=== PATIENT | male | born 1965 | race Caucasian/White ===

== ENCOUNTER 2018-09-02 08:11 | Emergency (ER) | payer MEDICAID ==
[~2018-09-02] VITALS: Ht 175.3 cm; Wt 69.0 kg
[2018-09-02] MEDS ORDERED: TETanus/Pertussis (Acell)/Diphther VAC/PF (Tdap-Adult) 0.5ml syringe IM ONE (08:20)
[2018-09-02] MEDS ORDERED: LIDOcaine 1% w/epiNEPHrine 1:200,000 30ml vial IM ONE (08:20)
--- NOTE | 2018-09-02 08:53 | NUR ---
LAC NOTED TO RIGHT FOREHEAD AREA. SMALL AMOUNT BLEEDONG NOTED. PROVIDER AT THE BEDSIDE, PREPARING TO REPAIR LAC. WOUND IRRIGATED WITH SALINE PER SPIRAL GEAR GENERATOR.
[2018-09-02 10:14] VITALS: BP 112/63
== END 2018-09-02 10:16 | disposition home or self-care (01) ==
LOC: ER 08:12
DX: S01.01XA Laceration without foreign body of scalp, initial encounter (principal); S60.512A Abrasion of left hand, initial encounter; S60.511A Abrasion of right hand, initial encounter; X58.XXXA Exposure to other specified factors, initial encounter; Y93.89 Activity, other specified; Y92.89 Other specified places as the place of occurrence of the external cause; Y99.8 Other external cause status
CPT/HCPCS: 12002; 70450; 90471; 90715; 99284; J3490

== ENCOUNTER 2019-03-05 17:40 | Emergency (ER) | payer MEDICAID ==
[~2019-03-05] VITALS: Ht 165.1 cm; Wt 68.0 kg
[2019-03-05] MEDS ORDERED: normal saline 1000ML IV soln IVB ONE (17:45)
[2019-03-05 18:40] LABS: BASOPHILS % (AUTO) 0.3 % (0-1); EOSINOPHILS % (AUTO) 0.4 % (0-6); HEMATOCRIT 43.5 % (42.0-52.0); HEMOGLOBIN 14.9 g/dl (14.0-17.9); LYMPHOCYTES # (AUTO) 2.1 X10'3 (1.1-4.8); LYMPHOCYTES % (AUTO) 19.1 % (21-51); MEAN CORPUSCULAR HEMOGLOBIN 32.3 PG (27.0-31.0); MEAN CORPUSCULAR HGB CONC 34.3 g/dL (33.0-36.5); MEAN CORPUSCULAR VOLUME 94.4 FL (78-98); MEAN PLATELET VOLUME 7.4 FL (7.4-10.4); MONOCYTES # (AUTO) 0.6 X10'3 (0-0.9); MONOCYTES % (AUTO) 5.5 % (2-12); NEUTROPHILS % (AUTO) 74.7 % (42-75); PLATELET COUNT 278 X10'3 (140-440); RED BLOOD COUNT 4.61 X10'6 (4.70-6.10); RED CELL DISTRIBUTION WIDTH 12.9 % (11.5-14.5); WHITE BLOOD COUNT 10.8 X10'3 (4.5-11.0)
[2019-03-05 18:53] LABS: ALANINE AMINOTRANSFERASE 33 U/L (12-78); ALBUMIN 3.3 G/DL (3.4-5.0); ALBUMIN/GLOBULIN RATIO 0.7 (1.1-1.5); ALKALINE PHOSPHATASE 139 IU/L (46-116); ANION GAP 12 (8-16); ASPARTATE AMINO TRANSFERASE 25 U/L (10-37); BILIRUBIN,TOTAL 0.2 MG/DL (0.1-1.0); BLOOD UREA NITROGEN 16 MG/DL (7-18); BUN/CREATININE RATIO 24.2 (5.4-32.0); CALCIUM 8.5 MG/DL (8.5-10.1); CHLORIDE 106 MMOL/L (99-107); CREATININE 0.66 MG/DL (0.60-1.10); GLUCOSE 117 MG/DL (70-104); POTASSIUM 3.8 MMOL/L (3.5-5.1); SODIUM 141 MMOL/L (135-145); TOTAL CARBON DIOXIDE 23.5 MMOL/L (24-32); TOTAL PROTEIN 8.2 G/DL (6.4-8.2); eGFR > 90 ML/MIN
[2019-03-05 19:00] LABS: ETHANOL 0.332 GM/DL (0.0-0.010)
[2019-03-05] MEDS ORDERED: thiamine 100mg/ml 2ml inj. IV ONE (19:15)
[2019-03-05] MEDS ORDERED: normal saline 1000ML IV soln IV ONE (19:15)
[2019-03-05] MEDS ORDERED: folic acid 1mg/0.2ml inj IV ONE (19:15)
--- NOTE | 2019-03-05 21:28 | NUR ---
Pt's urine specimen obtained and sent to the lab for processing. Pt is on the gurney in a side lying position of comfort. Pt given warm blankets. Vitals stable.
[2019-03-05 21:41] LABS: CLARITY,URINE CLEAR (Clear); COLOR,URINE YELLOW (Yellow); GLUCOSE, URINE NEGATIVE (Neg); KETONES,URINE NEGATIVE (Neg); LEUKOCYTE ESTERASE ,URINE NEGATIVE (Neg); NITRITES, URINE NEGATIVE (Neg); OCCULT BLOOD,URINE NEGATIVE (Neg); PH,URINE 5.5 (4.8-8.0); PROTEIN,URINE NEGATIVE (Neg); UROBILINOGEN,URINE 0.2 E.U/dL (0.2-1.0)
[2019-03-05 21:43] LABS: UA COLLECTION TYPE CLN CATCH MIDSTREAM
[2019-03-05 21:44] LABS: URINE AMPHETAMINE SCREEN POSITIVE (Neg); URINE BARBITUATE SCREEN NEGATIVE (Neg); URINE BENZODIAZEPINES SCREEN NEGATIVE (Neg); URINE CANNABINOID SCREEN NEGATIVE (Neg); URINE COCAINE SCREEN NEGATIVE (Neg); URINE METHADONE SCREEN NEGATIVE (Neg); URINE OPIATE SCREEN NEGATIVE (Neg); URINE PHENCYCLIDINE SCREEN NEGATIVE (Neg)
--- NOTE | 2019-03-05 22:30 | NUR ---
pt dc ready, he will be provided a hospital pay taxi to the [place]. When Pt getting dressed for DC reporting pain to his left arm and stating he cannot move it. KATE Tineo, updated and will order xray. Pt had only 5 minutes prior told me that he had no pain. Standing steady at bedside using urinal. awaiting xray
[2019-03-05 23:46] VITALS: BP 119/87
--- NOTE | 2019-03-06 | NUR ---
Pt given food and drink and weather appropriate clothing prior to discharge. Arm sling applied to the left upper extremity as ordered.
--- NOTE | 2019-03-06 | NUR ---
Abrasions on the right hand cleaned with saline and gauze and bandaids applied. Pt instructed about wound care and observe signs of infection. Pt has stable vitals and normal temperature. Pt reports pain is acceptable level. Yellow cab is in route to the hospital to lemon picker the patient to transport him to his reported place of residence at "[address], [place] Pt reminded his bicycle is in the ambulance bay and the class c truck driver reports he will be able to transport the bike in the trunk. Pt ambulatory with steady gait upon discharge to home.
== END 2019-03-06 | disposition home or self-care (01) ==
LOC: ER 17:40
DX: S00.81XA Abrasion of other part of head, initial encounter (principal); S00.212A Abrasion of left eyelid and periocular area, initial encounter; S60.512A Abrasion of left hand, initial encounter; F10.929 Alcohol use, unspecified with intoxication, unspecified; M25.512 Pain in left shoulder; R79.1 Abnormal coagulation profile; Z88.0 Allergy status to penicillin; V19.9XXA Pedal cyclist (driver) (passenger) injured in unspecified traffic accident, initial encounter; Y93.89 Activity, other specified; Y92.488 Other paved roadways as the place of occurrence of the external cause; Y99.8 Other external cause status
CPT/HCPCS: 36415; 70450; 71045; 72125; 73030; 80053; 80305; 80320; 81003; 82948; 85025; 85610; 93005; 96374; 96375; 99284; J3411; J3490; J7030

== ENCOUNTER 2020-05-05 01:21 | Emergency (ER) | payer MEDICAID ==
[~2020-05-05] VITALS: Ht 172.7 cm; Wt 68.0 kg
[2020-05-05] MEDS ORDERED: sulfamethoxazole/trimethoprim DS (800/160mg) tablet PO ONE (01:40)
[2020-05-05] MEDS ORDERED: SULF1TAB48 PO (01:51)
[2020-05-05 01:52] LABS: CLARITY,URINE CLEAR (Clear); COLOR,URINE YELLOW (Yellow); GLUCOSE, URINE NEGATIVE (Neg); KETONES,URINE NEGATIVE (Neg); LEUKOCYTE ESTERASE ,URINE NEGATIVE (Neg); NITRITES, URINE NEGATIVE (Neg); OCCULT BLOOD,URINE NEGATIVE (Neg); PROTEIN,URINE 30 mg/dl (Neg); UROBILINOGEN,URINE 0.2 E.U/dL (0.2-1.0)
[2020-05-05 01:57] LABS: UA COLLECTION TYPE CLN CATCH MIDSTREAM
[2020-05-05 01:59] VITALS: BP 106/66
[2020-05-05 01:59] LABS: URINE AMPHETAMINE SCREEN POSITIVE (Neg); URINE BARBITUATE SCREEN NEGATIVE (Neg); URINE BENZODIAZEPINES SCREEN NEGATIVE (Neg); URINE CANNABINOID SCREEN NEGATIVE (Neg); URINE COCAINE SCREEN NEGATIVE (Neg); URINE METHADONE SCREEN NEGATIVE (Neg); URINE OPIATE SCREEN NEGATIVE (Neg); URINE PHENCYCLIDINE SCREEN NEGATIVE (Neg)
[2020-05-05 02:22] LABS: SQUAMOUS EPITHELIAL CELL,UR FEW /LPF (FEW)
[2020-05-05 02:31] LABS: BACTERIA,URINE FEW /HPF (Neg); RBC,URINE NONE SEEN /HPF (0-2); WBC,URINE 0-4 /HPF (0-4)
== END 2020-05-05 02:34 | disposition home or self-care (01) ==
LOC: ER 01:21
DX: T40.411A Poisoning by fentanyl or fentanyl analogs, accidental (unintentional), initial encounter (principal); F15.90 Other stimulant use, unspecified, uncomplicated; L03.311 Cellulitis of abdominal wall; F17.200 Nicotine dependence, unspecified, uncomplicated; Z72.89 Other problems related to lifestyle; Z88.0 Allergy status to penicillin; Z79.899 Other long term (current) drug therapy; Y92.89 Other specified places as the place of occurrence of the external cause
CPT/HCPCS: 80305; 81001; 99283

== ENCOUNTER 2020-10-02 17:30 | Emergency (ER) | payer MEDICAID ==
[~2020-10-02] VITALS: Ht 170.2 cm; Wt 65.8 kg
[2020-10-02] MEDS ORDERED: SULF1TAB49 PO (19:47)
[2020-10-02] MEDS ORDERED: CEPH250T PO (19:47)
[2020-10-02 20:07] VITALS: BP 130/78
== END 2020-10-02 20:08 | disposition home or self-care (01) ==
LOC: ER 17:30
DX: L02.414 Cutaneous abscess of left upper limb (principal); F15.90 Other stimulant use, unspecified, uncomplicated; F11.90 Opioid use, unspecified, uncomplicated; F19.90 Other psychoactive substance use, unspecified, uncomplicated; Z72.89 Other problems related to lifestyle; Z88.0 Allergy status to penicillin; Z79.2 Long term (current) use of antibiotics
CPT/HCPCS: 99283

== ENCOUNTER 2020-10-30 13:35 | Emergency (ER) | payer MEDICAID ==
[~2020-10-30] VITALS: Ht 172.7 cm; Wt 68.2 kg
--- NOTE | 2020-10-30 14:00 | NUR ---
Md Griffin notified pt's R arm pain, acs protocol per prior provider Valentin and SUSANA 1L initiated
[2020-10-30 14:26] LABS: BASOPHILS # (AUTO) 0.1 X10'3 (0-0.2); BASOPHILS % (AUTO) 0.7 % (0-1); EOSINOPHILS % (AUTO) 0.3 % (0-6); HEMATOCRIT 40.7 % (42.0-52.0); HEMOGLOBIN 13.7 g/dl (14.0-17.9); LYMPHOCYTES # (AUTO) 1.4 X10'3 (1.1-4.8); LYMPHOCYTES % (AUTO) 11.3 % (21-51); MEAN CORPUSCULAR HEMOGLOBIN 31.1 PG (27.0-31.0); MEAN CORPUSCULAR HGB CONC 33.6 g/dL (33.0-36.5); MEAN CORPUSCULAR VOLUME 92.5 FL (78-98); MEAN PLATELET VOLUME 7.9 FL (7.4-10.4); NEUTROPHILS # (AUTO) 9.6 X10'3 (1.8-7.7); NEUTROPHILS % (AUTO) 79.7 % (42-75); PLATELET COUNT 241 X10'3 (140-440); RED BLOOD COUNT 4.39 X10'6 (4.70-6.10); RED CELL DISTRIBUTION WIDTH 13.8 % (11.5-14.5); WHITE BLOOD COUNT 12.1 X10'3 (4.5-11.0)
[2020-10-30 14:39] LABS: ALANINE AMINOTRANSFERASE 33 U/L (12-78); ALBUMIN 3.2 G/DL (3.4-5.0); ALBUMIN/GLOBULIN RATIO 0.9 (1.1-1.5); ALKALINE PHOSPHATASE 119 IU/L (46-116); ANION GAP 10 (8-16); ASPARTATE AMINO TRANSFERASE 25 U/L (10-37); BILIRUBIN,TOTAL 0.6 MG/DL (0.1-1.0); BLOOD UREA NITROGEN 11 MG/DL (7-18); CALCIUM 7.8 MG/DL (8.5-10.1); CHLORIDE 104 MMOL/L (99-107); CREATININE 0.58 MG/DL (0.60-1.10); GLUCOSE 105 MG/DL (70-104); POTASSIUM 3.3 MMOL/L (3.5-5.1); SODIUM 139 MMOL/L (135-145); TOTAL CARBON DIOXIDE 25.2 MMOL/L (24-32); TOTAL PROTEIN 6.9 G/DL (6.4-8.2); eGFR > 90 ML/MIN
[2020-10-30] MEDS ORDERED: normal saline 1000ml 1,000 ML IV ONE (14:50)
[2020-10-30] MEDS ORDERED: gentamicin inj 400 MG in normal saline 100ml IV soln 100 ML IV STA (15:07)
[2020-10-30] MEDS ORDERED: DOXYCYCLINE 100MG CAPSULE PO STA (15:07)
[2020-10-30] MEDS ORDERED: ketorolac trometh. 30mg/ml inj. IV ONE (15:10)
[2020-10-30] MEDS ORDERED: HYDROcodone/acetaminophen 10/325mg tab PO ONE (15:15)
--- NOTE | 2020-10-30 15:51 | NUR ---
relieving RN for break, medicated pt per MD order, pt is resting quietly on gurney, resp even and unlabored
[2020-10-30] MEDS ORDERED: CEPH-585 PO (16:32)
[2020-10-30] MEDS ORDERED: SULF1TAB45 PO (16:32)
[2020-10-30 17:14] VITALS: BP 118/58
== END 2020-10-30 17:16 | disposition home or self-care (01) ==
LOC: ER 13:35
DX: L03.114 Cellulitis of left upper limb (principal); F15.90 Other stimulant use, unspecified, uncomplicated; F11.90 Opioid use, unspecified, uncomplicated; Z72.89 Other problems related to lifestyle; Z86.19 Personal history of other infectious and parasitic diseases; Z88.0 Allergy status to penicillin; Z79.899 Other long term (current) drug therapy
CPT/HCPCS: 36415; 71045; 73090; 80053; 83880; 84145; 84484; 85025; 93005; 96361; 96365; 96375; 99285; J1580; J1885; J7030; 96374

== ENCOUNTER 2021-03-01 13:21 | Emergency (ER) | payer MEDICAID ==
[~2021-03-01] VITALS: Ht 172.7 cm; Wt 77.3 kg
[~2021-03-01 13:21] MED LIST: CEPH-585 PO
[2021-03-01 13:37] VITALS: BP 103/70
== END 2021-03-01 14:02 ==
LOC: ER 13:21
DX: F10.129 Alcohol abuse with intoxication, unspecified (principal); F15.10 Other stimulant abuse, uncomplicated; F11.10 Opioid abuse, uncomplicated; Z02.89 Encounter for other administrative examinations; Y90.9 Presence of alcohol in blood, level not specified; Z88.0 Allergy status to penicillin
CPT/HCPCS: 99283

== ENCOUNTER 2021-12-28 00:54 | Emergency (ER) | payer MEDICAID ==
[~2021-12-28] VITALS: Ht 175.3 cm; Wt 86.4 kg
[2021-12-28] MEDS ORDERED: normal saline 1000ML IV soln IVB ONE (01:20)
[2021-12-28 03:19] LABS: BASOPHILS % (AUTO) 0.2 % (0-1); EOSINOPHILS % (AUTO) 0.3 % (0-6); HEMOGLOBIN 15.1 g/dl (14.0-17.9); LYMPHOCYTES # (AUTO) 1.1 X10'3 (1.1-4.8); MEAN CORPUSCULAR HEMOGLOBIN 31.8 PG (27.0-31.0); MEAN CORPUSCULAR HGB CONC 34.3 g/dL (33.0-36.5); MEAN CORPUSCULAR VOLUME 92.5 FL (78-98); MEAN PLATELET VOLUME 7.8 FL (7.4-10.4); MONOCYTES # (AUTO) 0.5 X10'3 (0-0.9); MONOCYTES % (AUTO) 4.2 % (2-12); NEUTROPHILS # (AUTO) 10.1 X10'3 (1.8-7.7); NEUTROPHILS % (AUTO) 86.3 % (42-75); PLATELET COUNT 323 X10'3 (140-440); RED BLOOD COUNT 4.75 X10'6 (4.70-6.10); RED CELL DISTRIBUTION WIDTH 13.3 % (11.5-14.5); WHITE BLOOD COUNT 11.7 X10'3 (4.5-11.0)
[2021-12-28 03:37] LABS: ALANINE AMINOTRANSFERASE 34 U/L (12-78); ALBUMIN 3.6 G/DL (3.4-5.0); ALBUMIN/GLOBULIN RATIO 0.7 (1.1-1.5); ALKALINE PHOSPHATASE 137 IU/L (46-116); ANION GAP 9 (8-16); ASPARTATE AMINO TRANSFERASE 28 U/L (10-37); BILIRUBIN,TOTAL 0.2 MG/DL (0.1-1.0); BLOOD UREA NITROGEN 18 MG/DL (7-18); BUN/CREATININE RATIO 22.2 (5.4-32.0); CALCIUM 8.1 MG/DL (8.5-10.1); CHLORIDE 106 MMOL/L (99-107); CREATININE 0.81 MG/DL (0.60-1.10); GLUCOSE 118 MG/DL (70-104); POTASSIUM 3.8 MMOL/L (3.5-5.1); SODIUM 143 MMOL/L (135-145); TOTAL CARBON DIOXIDE 28.5 MMOL/L (24-32); TOTAL PROTEIN 8.6 G/DL (6.4-8.2); eGFR > 90 ML/MIN
[2021-12-28 03:43] LABS: ETHANOL < 0.010 GM/DL (0.0-0.010)
[2021-12-28 04:07] LABS: CLARITY,URINE CLEAR (Clear); COLOR,URINE YELLOW (Yellow); GLUCOSE, URINE NEGATIVE (Neg); KETONES,URINE NEGATIVE (Neg); LEUKOCYTE ESTERASE ,URINE NEGATIVE (Neg); NITRITES, URINE NEGATIVE (Neg); OCCULT BLOOD,URINE NEGATIVE (Neg); PH,URINE 5.5 (4.8-8.0); PROTEIN,URINE 30 mg/dl (Neg); UROBILINOGEN,URINE 0.2 E.U/dL (0.2-1.0)
[2021-12-28 04:09] LABS: UA COLLECTION TYPE NON-SPECIFIED
[2021-12-28 04:14] LABS: BACTERIA,URINE FEW /HPF (Neg); RBC,URINE 0-2 /HPF (0-2); SQUAMOUS EPITHELIAL CELL,UR FEW /LPF (FEW); WBC,URINE NONE SEEN /HPF (0-4)
[2021-12-28 04:19] LABS: URINE AMPHETAMINE SCREEN POSITIVE (Neg); URINE BARBITUATE SCREEN NEGATIVE (Neg); URINE BENZODIAZEPINES SCREEN NEGATIVE (Neg); URINE CANNABINOID SCREEN NEGATIVE (Neg); URINE COCAINE SCREEN NEGATIVE (Neg); URINE METHADONE SCREEN NEGATIVE (Neg); URINE OPIATE SCREEN NEGATIVE (Neg); URINE PHENCYCLIDINE SCREEN NEGATIVE (Neg)
[2021-12-28 06:11] VITALS: BP 144/83
== END 2021-12-28 06:17 | disposition home or self-care (01) ==
LOC: ER 00:54
DX: T40.2X1A Poisoning by other opioids, accidental (unintentional), initial encounter (principal); R41.82 Altered mental status, unspecified; Z87.19 Personal history of other diseases of the digestive system; Z88.0 Allergy status to penicillin; Y92.89 Other specified places as the place of occurrence of the external cause
CPT/HCPCS: 36415; 70450; 71045; 80053; 80305; 80320; 81001; 84484; 85025; 96360; 99285; J7030

== ENCOUNTER 2022-07-20 16:24 | Emergency (ER) | payer MEDICAID ==
[~2022-07-20] VITALS: Ht 172.7 cm; Wt 63.6 kg
[2022-07-20] MEDS ORDERED: SULF1TAB49 PO (17:41)
[2022-07-20] MEDS ORDERED: NALO4SPR BOTHNARES (17:41)
[2022-07-20 18:05] VITALS: BP 112/71
--- NOTE | 2022-07-21 10:38 | NUR ---
Received order for consult. Patient discharged. Left message for patient to call me back.
== END 2022-07-20 18:18 | disposition home or self-care (01) ==
LOC: ER 16:25
DX: T40.411A Poisoning by fentanyl or fentanyl analogs, accidental (unintentional), initial encounter (principal); F15.10 Other stimulant abuse, uncomplicated; F11.90 Opioid use, unspecified, uncomplicated; Z88.0 Allergy status to penicillin; Z86.19 Personal history of other infectious and parasitic diseases; Y92.89 Other specified places as the place of occurrence of the external cause
CPT/HCPCS: 99284

== ENCOUNTER 2023-09-24 21:28 | Inpatient (IN) | payer MEDICAID ==
[~2023-09-24] VITALS: Ht 175.3 cm; Wt 67.0 kg
[~2023-09-24 21:28] MED LIST changes: -CEPH-585 PO; +NALO4SPR BOTHNARES
[2023-09-24 23:47] LABS: BASOPHILS % (AUTO) 0.5 % (0-1); EOSINOPHILS # (AUTO) 0.1 X10'3 (0-0.9); EOSINOPHILS % (AUTO) 1.3 % (0-6); HEMATOCRIT 42.9 % (42.0-52.0); HEMOGLOBIN 14.8 g/dl (14.0-17.9); LYMPHOCYTES # (AUTO) 2.8 X10'3 (1.1-4.8); LYMPHOCYTES % (AUTO) 36.5 % (21-51); MEAN CORPUSCULAR HEMOGLOBIN 31.7 PG (27.0-31.0); MEAN CORPUSCULAR HGB CONC 34.5 g/dL (33.0-36.5); MEAN CORPUSCULAR VOLUME 91.8 FL (78-98); MEAN PLATELET VOLUME 8.3 FL (7.4-10.4); MONOCYTES # (AUTO) 0.6 X10'3 (0-0.9); MONOCYTES % (AUTO) 7.7 % (2-12); NEUTROPHILS # (AUTO) 4.2 X10'3 (1.8-7.7); PLATELET COUNT 274 X10'3 (140-440); RED BLOOD COUNT 4.67 X10'6 (4.70-6.10); RED CELL DISTRIBUTION WIDTH 13.2 % (11.5-14.5); WHITE BLOOD COUNT 7.7 X10'3 (4.5-11.0)
[2023-09-24] MEDS ORDERED: BUPR150T8 PO (23:59)
[2023-09-24] MEDS ORDERED: DONE-53 PO (23:59)
[2023-09-25 00:03] LABS: APTT 27 SECONDS (22-32); PROTHROMBIN TIME 10.3 SECONDS (9.0-12.0)
[2023-09-25 00:18] LABS: ALANINE AMINOTRANSFERASE 44 U/L (12-78); ALBUMIN 3.7 G/DL (3.4-5.0); ALBUMIN/GLOBULIN RATIO 0.8 (1.1-1.5); ALKALINE PHOSPHATASE 97 IU/L (46-116); ANION GAP 13 (8-16); ASPARTATE AMINO TRANSFERASE 29 U/L (10-37); BILIRUBIN,TOTAL 0.2 MG/DL (0.1-1.0); BLOOD UREA NITROGEN 12 MG/DL (7-18); CALCIUM 8.7 MG/DL (8.5-10.1); CHLORIDE 105 MMOL/L (99-107); CREATININE 0.63 MG/DL (0.60-1.10); GLUCOSE 106 MG/DL (70-104); POTASSIUM 3.5 MMOL/L (3.5-5.1); SODIUM 141 MMOL/L (135-145); TOTAL CARBON DIOXIDE 23.1 MMOL/L (24-32); TOTAL PROTEIN 8.1 G/DL (6.4-8.2); eCRCL 120 ML/MIN; eGFR > 90 ML/MIN
[2023-09-25] MEDS: normal saline 1000ML IV soln IVB ONE (01:28)
[2023-09-25] MEDS: TETanus/Pertussis (Acell)/Diphther VAC/PF (Tdap-Adult) 0.5ml syringe IMVAC ONE (01:30)
[2023-09-25] MEDS ORDERED: ondansetron 4mg rapidly disintigrating tab PO PRN (01:35)
[2023-09-25] MEDS ORDERED: LORazepam 1 MG tablet PO PRN (01:35)
[2023-09-25] MEDS ORDERED: haloperidol lactate 5mg/ml inj IM PRN (01:35)
[2023-09-25] MEDS ORDERED: acetaminophen 325mg tablet PO PRN (01:35)
[2023-09-25] MEDS ORDERED: potassium Cl 40MEQ/1/2NS 520ml 520 ML IV PRN (01:35)
[2023-09-25] MEDS ORDERED: potassium Cl 20 mEq SR tablet PO PRN ×2 (01:35)
[2023-09-25] MEDS ORDERED: haloperidol 5mg tablet PO PRN (01:35)
[2023-09-25] MEDS ORDERED: magnesium Cl slow-release 64mg tablet PO PRN (01:35)
[2023-09-25] MEDS ORDERED: LORazepam 2 mg/ml vial IV PRN (01:35)
[2023-09-25] MEDS ORDERED: ondansetron/PF 4mg/2ml inj IV PRN (01:35)
[2023-09-25] MEDS ORDERED: dextrose 50%-water 50ml dispensing syringe IV PRN (01:35)
[2023-09-25] MEDS ORDERED: magnesium 4gm in 100ml NS 100 ML IV PRN (01:35)
[2023-09-25] MEDS ORDERED: HYDROcodone/acetaminophen 5mg/325mg tablet PO PRN (01:35)
[2023-09-25] MEDS ORDERED: morphine 2 MG/ML inj. syringe IV PRN ×2 (01:35)
[2023-09-25] MEDS ORDERED: magnesium hydroxide 30ml (MOM) UD suspension PO PRN (01:35)
[2023-09-25] MEDS ORDERED: mag hydrox/Alum hydrox/simeth 30ml oral suspension PO PRN (01:35)
[2023-09-25] MEDS ORDERED: magnesium 2GM in 50ml NS 50 ML IV PRN (01:35)
[2023-09-25] MEDS: PERFLUTREN PROTEIN-A MICROSPHR (Optison) 0.22 MG/ML 3ML VIAL IV ONE (02:29)
[2023-09-25 03:05] LABS: ETHANOL 230 MG/DL (<10); MAGNESIUM 2.2 MG/DL (1.5-2.4)
[2023-09-25 03:23] LABS: BILIRUBIN,URINE NEGATIVE (Neg); CLARITY,URINE CLEAR (Clear); COLOR,URINE STRAW (Yellow); GLUCOSE, URINE NEGATIVE (Neg); KETONES,URINE NEGATIVE (Neg); LEUKOCYTE ESTERASE ,URINE NEGATIVE (Neg); NITRITES, URINE NEGATIVE (Neg); OCCULT BLOOD,URINE NEGATIVE (Neg); PH,URINE 5.5 (4.8-8.0); PROTEIN,URINE NEGATIVE (Neg); UROBILINOGEN,URINE 0.2 E.U/dL (0.2-1.0)
[2023-09-25 03:25] LABS: UA COLLECTION TYPE CLN CATCH MIDSTREAM
[2023-09-25 04:01] LABS: URINE AMPHETAMINE SCREEN NEGATIVE (Neg); URINE BARBITUATE SCREEN NEGATIVE (Neg); URINE BENZODIAZEPINES SCREEN NEGATIVE (Neg); URINE CANNABINOID SCREEN NEGATIVE (Neg); URINE COCAINE SCREEN NEGATIVE (Neg); URINE METHADONE SCREEN NEGATIVE (Neg); URINE OPIATE SCREEN NEGATIVE (Neg); URINE PHENCYCLIDINE SCREEN NEGATIVE (Neg)
[2023-09-25] MEDS: folic acid 1mg/0.2ml inj IV SCH (08:00)
[2023-09-25] MEDS: K and/or MAG REPLACEMENT MC SCH (08:00)
[2023-09-25] MEDS: thiamine 100mg/ml 2ml inj. IV SCH (09:33)
[2023-09-25] MEDS: enoxaparin 40mg/0.4ml syringe SUBCUT SCH (09:33)
[2023-09-25] MEDS: docusate sod 100mg capsule PO SCH (09:34)
[2023-09-25 11:00] VITALS: BP 101/67; PULSE 65; RESP 18; TEMP 98; O2SAT 96
[2023-09-25 15:00] VITALS: BP 145/70; PULSE 75; RESP 14; TEMP 98.2; O2SAT 98
[2023-09-25 16:42] LABS: HEMOGLOBIN A1C 5.8 % (4.5-6.2)
[2023-09-25 16:45] LABS: PHOSPHORUS 3.1 MG/DL (2.3-4.5)
[2023-09-25 18:00] VITALS: BP 137/77; PULSE 67; RESP 12; TEMP 98.4; O2SAT 97
[2023-09-25] MEDS: HYDROcodone/acetaminophen 10/325mg tab PO PRN (18:54)
[2023-09-25 20:00] VITALS: RESP 15; O2SAT 97
[2023-09-25 22:00] VITALS: BP 127/66; PULSE 66; RESP 13; TEMP 98.3; O2SAT 96
[2023-09-26 02:00] VITALS: BP 126/73; PULSE 69; RESP 15; TEMP 98.1; O2SAT 97
[2023-09-26 06:00] VITALS: BP 156/92; PULSE 66; RESP 14; TEMP 97.9; O2SAT 96
[2023-09-26 06:33] LABS: BASOPHILS % (AUTO) 0.3 % (0-1); EOSINOPHILS # (AUTO) 0.3 X10'3 (0-0.9); EOSINOPHILS % (AUTO) 3.2 % (0-6); HEMOGLOBIN 13.5 g/dl (14.0-17.9); LYMPHOCYTES # (AUTO) 2.8 X10'3 (1.1-4.8); MEAN CORPUSCULAR HEMOGLOBIN 31.7 PG (27.0-31.0); MEAN CORPUSCULAR HGB CONC 34.6 g/dL (33.0-36.5); MEAN CORPUSCULAR VOLUME 91.4 FL (78-98); MEAN PLATELET VOLUME 8.1 FL (7.4-10.4); MONOCYTES # (AUTO) 0.9 X10'3 (0-0.9); MONOCYTES % (AUTO) 10.9 % (2-12); NEUTROPHILS # (AUTO) 3.9 X10'3 (1.8-7.7); NEUTROPHILS % (AUTO) 49.6 % (42-75); PLATELET COUNT 245 X10'3 (140-440); RED BLOOD COUNT 4.27 X10'6 (4.70-6.10); WHITE BLOOD COUNT 7.9 X10'3 (4.5-11.0)
[2023-09-26 07:11] LABS: ALANINE AMINOTRANSFERASE 41 U/L (12-78); ALBUMIN 3.2 G/DL (3.4-5.0); ALBUMIN/GLOBULIN RATIO 0.9 (1.1-1.5); ALKALINE PHOSPHATASE 87 IU/L (46-116); ANION GAP 2 (8-16); ASPARTATE AMINO TRANSFERASE 20 U/L (10-37); BILIRUBIN,TOTAL 0.4 MG/DL (0.1-1.0); BLOOD UREA NITROGEN 19 MG/DL (7-18); BUN/CREATININE RATIO 24.4 (10.0-20.0); CALCIUM 8.6 MG/DL (8.5-10.1); CHLORIDE 106 MMOL/L (99-107); CHOL/HDL RATIO 2.8 (0.00-4.99); CHOLESTEROL 170 MG/DL (0-200); CREATININE 0.78 MG/DL (0.60-1.10); GLUCOSE 92 MG/DL (70-104); HDL CHOLESTEROL 61 MG/DL (35-60); LDL CHOLESTEROL 94 MG/DL (50-100); SODIUM 140 MMOL/L (135-145); TOTAL CARBON DIOXIDE 31.7 MMOL/L (24-32); TOTAL PROTEIN 6.9 G/DL (6.4-8.2); TRIGLYCERIDES 49 MG/DL (20-135); eCRCL 95 ML/MIN; eGFR > 90 ML/MIN
[2023-09-26 08:00] VITALS: RESP 13; O2SAT 96
[2023-09-26 11:00] VITALS: BP 136/84; PULSE 68; RESP 17; TEMP 98.3; O2SAT 97
[2023-09-26] MEDS ORDERED: FOLI1TAB27 PO (12:35)
[2023-09-26] MEDS ORDERED: THIA100T70 PO (12:35)
[2023-09-26] MEDS ORDERED: ATOR20TA66 PO (12:35)
[2023-09-26] MEDS ORDERED: ASPI-1265 PO (12:35)
[2023-09-26 15:00] VITALS: BP 139/75; PULSE 66; RESP 14; TEMP 98.4; O2SAT 95
[2023-09-29] MEDS ORDERED: folic acid 1mg tablet PO SCH (08:00)
[2023-09-29] MEDS ORDERED: thiamine 100mg tablet PO SCH (08:00)
== END 2023-09-26 15:20 | disposition home or self-care (01) | DRG 115 ==
LOC: ER 21:29 → ED HOLD 09-25 01:41 → PCU 3S 09-25 07:23
PROVIDERS: ADMIT Internal Medicine Critical Care Medicine; ATTEND Internal Medicine
DX: S09.8XXA Other specified injuries of head, initial encounter (principal); Z88.0 Allergy status to penicillin; Y93.89 Activity, other specified; Y92.89 Other specified places as the place of occurrence of the external cause; Y99.8 Other external cause status; W18.39XA Other fall on same level, initial encounter
CPT/HCPCS: 36415; 70450; 70486; 70551; 71045; 80053; 80061; 80305; 80320; 81003; 82140; 82948; 83036; 83735; 84100; 84484; 85025; 85610; 85730; 87081; 90471; 90715; 93005; 93306; 93880; 99285; G0378; J1650; J3411; J3490; J7030

== ENCOUNTER → 2023-09-29 | Outpatient (CLI) | payer MEDICAID ==
[~2023-09-29] MED LIST changes: +ASPI-1265 PO; +ATOR20TA66 PO; +BUPR150T8 PO; +DONE-53 PO; +FOLI1TAB27 PO; +THIA100T70 PO
== END | disposition home or self-care (01) ==
LOC: RAD 11:40
PROVIDERS: ATTEND Family Medicine
DX: S39.92XA Unspecified injury of lower back, initial encounter (principal); I70.0 Atherosclerosis of aorta; M47.816 Spondylosis without myelopathy or radiculopathy, lumbar region; X58.XXXA Exposure to other specified factors, initial encounter; Y93.89 Activity, other specified; Y92.89 Other specified places as the place of occurrence of the external cause; Y99.8 Other external cause status
CPT/HCPCS: 72110

== ENCOUNTER 2024-04-12 00:41 | Emergency (ER) | payer MEDICAID ==
[~2024-04-12] VITALS: Ht 175.3 cm; Wt 75.0 kg
[~2024-04-12 00:41] MED LIST changes: -ASPI-1265 PO
[2024-04-12 00:49] VITALS: TEMP 98
[2024-04-12] MEDS: traMADol 50MG tablet PO ONE (02:48)
[2024-04-12] MEDS: acetaminophen 325mg tablet PO ONE (02:48)
[2024-04-12] MEDS: ondansetron 4mg rapidly disintigrating tab PO ONE (02:48)
[2024-04-12 03:44] VITALS: BP 128/74; PULSE 94; RESP 15; O2SAT 98
== END 2024-04-12 03:45 | disposition home or self-care (01) ==
LOC: ER 00:42
DX: S00.81XA Abrasion of other part of head, initial encounter (principal); F15.90 Other stimulant use, unspecified, uncomplicated; R41.0 Disorientation, unspecified; Z88.0 Allergy status to penicillin; Z79.899 Other long term (current) drug therapy; Y08.89XA Assault by other specified means, initial encounter; Y93.89 Activity, other specified; Y92.89 Other specified places as the place of occurrence of the external cause; Y99.8 Other external cause status
CPT/HCPCS: 70450; 70486; 99284

== ENCOUNTER 2024-06-12 09:22 | Inpatient (IN) | payer MEDICAID ==
[2024-06-12] VITALS (16 sets, daily range): BP systolic 110–159; BP diastolic 64–95; PULSE 57–110; RESP 7–22; TEMP 96.6–98.6; O2SAT 97–100
[~2024-06-12] VITALS: Ht 175.3 cm; Wt 60.0 kg
[2024-06-12] MEDS ORDERED: LIDOcaine 1% 30ml preserv. free vial ONE (09:28)
[2024-06-12] MEDS ORDERED: iohexol 350MG/ML 100ml bottle IV ONE ×2 (09:29→10:25)
[2024-06-12] MEDS ORDERED: fentaNYL/PF 50MCG/1 ML 2ML syringe ONE (09:29)
[2024-06-12] MEDS ORDERED: midazolam 1 mg/ML 2ml injection ONE ×2 (09:29→09:51)
[2024-06-12] MEDS ORDERED: heparin 1,000unit/ml 10ml vial 0 ML ONE (09:29)
[2024-06-12] MEDS ORDERED: iohexol 350 MG/ML 50ML vial IV ONE (09:29)
[2024-06-12 09:42] LABS: BASOPHILS % (AUTO) 0.4 % (0-1); EOSINOPHILS # (AUTO) 0.2 X10'3 (0-0.9); HEMATOCRIT 42.1 % (42.0-52.0); HEMOGLOBIN 14.2 g/dl (14.0-17.9); LYMPHOCYTES % (AUTO) 39.6 % (21-51); MEAN CORPUSCULAR HEMOGLOBIN 31.8 PG (27.0-31.0); MEAN CORPUSCULAR HGB CONC 33.9 g/dL (33.0-36.5); MEAN CORPUSCULAR VOLUME 93.8 FL (78-98); MEAN PLATELET VOLUME 8.3 FL (7.4-10.4); MONOCYTES # (AUTO) 0.8 X10'3 (0-0.9); MONOCYTES % (AUTO) 10.8 % (2-12); NEUTROPHILS # (AUTO) 3.5 X10'3 (1.8-7.7); NEUTROPHILS % (AUTO) 47.2 % (42-75); PLATELET COUNT 324 X10'3 (140-440); RED BLOOD COUNT 4.48 X10'6 (4.70-6.10); RED CELL DISTRIBUTION WIDTH 13.3 % (11.5-14.5); WHITE BLOOD COUNT 7.5 X10'3 (4.5-11.0)
[2024-06-12] MEDS: morphine 4 MG/ML inj SYRINge IV ONE (09:50)
[2024-06-12] MEDS: ondansetron/PF 4mg/2ml inj IM STA (09:50)
[2024-06-12] MEDS: morphine 4 MG/ML inj SYRINge ONE (09:55)
[2024-06-12] MEDS ORDERED: heparin 1,000unit/ml 10ml vial 10 ML ONE (09:56)
[2024-06-12] MEDS ORDERED: phenylephrine 10mg/ml inj. ONE (10:00)
[2024-06-12 10:01] LABS: ALANINE AMINOTRANSFERASE 51 U/L (12-78); ALBUMIN 3.6 G/DL (3.4-5.0); ALBUMIN/GLOBULIN RATIO 0.8 (1.1-1.5); ALKALINE PHOSPHATASE 123 IU/L (46-116); ANION GAP 10 (8-16); ASPARTATE AMINO TRANSFERASE 48 U/L (10-37); BILIRUBIN,TOTAL 0.4 MG/DL (0.1-1.0); BLOOD UREA NITROGEN 24 MG/DL (7-18); BUN/CREATININE RATIO 28.6 (10.0-20.0); CALCIUM 9.2 MG/DL (8.5-10.1); CHLORIDE 103 MMOL/L (99-107); CREATININE 0.84 MG/DL (0.60-1.10); GLUCOSE 197 MG/DL (70-104); POTASSIUM 4.4 MMOL/L (3.5-5.1); SODIUM 140 MMOL/L (135-145); TOTAL CARBON DIOXIDE 26.9 MMOL/L (24-32); TOTAL PROTEIN 8.2 G/DL (6.4-8.2); eCRCL 79 ML/MIN; eGFR > 90 ML/MIN
[2024-06-12 10:09] LABS: PRO BRAIN NATRIURETIC PEPTIDE 203 PG/ML (0-125)
[2024-06-12] MEDS ORDERED: clopidogrel 300mg tablet ONE (10:33)
[2024-06-12] MEDS ORDERED: aspirin 325mg tablet ONE (10:33)
[2024-06-12] MEDS ORDERED: proCHLORperazine 10 MG/2 ml inj IV PRN (12:35)
[2024-06-12] MEDS ORDERED: magnesium hydroxide 30ml (MOM) UD suspension PO PRN (12:35)
[2024-06-12] MEDS ORDERED: cyclobenzaprine 10mg tablet PO PRN (12:35)
[2024-06-12] MEDS ORDERED: acetaminophen 325mg tablet PO PRN ×2 (12:35)
[2024-06-12] MEDS ORDERED: potassium Cl 20 mEq SR tablet PO PRN ×2 (12:35)
[2024-06-12] MEDS ORDERED: HYDROcodone/acetaminophen 5mg/325mg tablet PO PRN (12:35)
[2024-06-12] MEDS ORDERED: ipratropium/albuterol 3ml nebule NEB PRN (12:35)
[2024-06-12] MEDS ORDERED: magnesium sulf-water 4G/100mL 100 ML IV PRN (12:35)
[2024-06-12] MEDS ORDERED: magnesium sulf-water 2g/50mL 50 ML IV PRN (12:35)
[2024-06-12] MEDS ORDERED: albuterol 2.5 MG/3 ML nebule NEB PRN (12:35)
[2024-06-12] MEDS ORDERED: OXAZEpam 15mg capsule PO PRN (12:35)
[2024-06-12] MEDS ORDERED: potassium Cl 40MEQ/1/2NS 520ml 520 ML IV PRN (12:35)
[2024-06-12] MEDS ORDERED: HYDROcodone/acetaminophen 10/325mg tab PO PRN (12:35)
[2024-06-12] MEDS: PERFLUTREN PROTEIN-A MICROSPHR (Optison) 0.22 MG/ML 3ML VIAL IV ONE (12:35)
[2024-06-12] MEDS ORDERED: ondansetron/PF 4mg/2ml inj IV PRN (12:35)
[2024-06-12] MEDS ORDERED: mag hydrox/Alum hydrox/simeth 30ml oral suspension PO PRN (12:35)
[2024-06-12] MEDS: normal saline 1000ml 1,000 ML IV SCH ×2 (12:54→13:07)
[2024-06-12] MEDS: aspirin 325mg tablet PO ONE (12:55)
[2024-06-12] MEDS: heparin, porcine 5000 units/ml vial SQ SCH (17:00)
[2024-06-12] MEDS ORDERED: docusate sod 100mg capsule PO SCH ×2 (20:00)
[2024-06-12] MEDS: K and/or MAG REPLACEMENT MC SCH (20:00)
[2024-06-12] MEDS: docusate sod 100mg capsule PO SCH (20:30)
[2024-06-12] MEDS: metoprolol succinate 25mg (24-HOUR) SR. Tablet PO SCH (20:30)
[2024-06-13 00:17] LABS: ALANINE AMINOTRANSFERASE 70 U/L (12-78); ALBUMIN 2.8 G/DL (3.4-5.0); ALBUMIN/GLOBULIN RATIO 0.7 (1.1-1.5); ALKALINE PHOSPHATASE 100 IU/L (46-116); ANION GAP 5 (8-16); ASPARTATE AMINO TRANSFERASE 232 U/L (10-37); BILIRUBIN,TOTAL 0.3 MG/DL (0.1-1.0); BLOOD UREA NITROGEN 19 MG/DL (7-18); BUN/CREATININE RATIO 28.4 (10.0-20.0); CALCIUM 8.5 MG/DL (8.5-10.1); CHLORIDE 107 MMOL/L (99-107); CREATININE 0.67 MG/DL (0.60-1.10); GLUCOSE 137 MG/DL (70-104); POTASSIUM 3.9 MMOL/L (3.5-5.1); SODIUM 141 MMOL/L (135-145); TOTAL CARBON DIOXIDE 29.5 MMOL/L (24-32); TOTAL PROTEIN 6.7 G/DL (6.4-8.2); eCRCL 100 ML/MIN; eGFR > 90 ML/MIN
[2024-06-13 02:00] VITALS: BP 110/69; PULSE 61; RESP 12; TEMP 97.2; O2SAT 97
[2024-06-13 04:42] VITALS: RESP 18; O2SAT 98
[2024-06-13 07:00] VITALS: RESP 20; O2SAT 99
[2024-06-13] MEDS ORDERED: atorvastatin 20mg tablet PO SCH (08:00)
[2024-06-13 08:13] LABS: BASOPHILS % (AUTO) 0.3 % (0-1); EOSINOPHILS # (AUTO) 0.1 X10'3 (0-0.9); EOSINOPHILS % (AUTO) 0.7 % (0-6); HEMATOCRIT 36.6 % (42.0-52.0); HEMOGLOBIN 12.4 g/dl (14.0-17.9); LYMPHOCYTES # (AUTO) 2.1 X10'3 (1.1-4.8); LYMPHOCYTES % (AUTO) 27.6 % (21-51); MEAN CORPUSCULAR HEMOGLOBIN 31.7 PG (27.0-31.0); MEAN CORPUSCULAR HGB CONC 33.9 g/dL (33.0-36.5); MEAN CORPUSCULAR VOLUME 93.5 FL (78-98); MEAN PLATELET VOLUME 8.8 FL (7.4-10.4); MONOCYTES # (AUTO) 0.7 X10'3 (0-0.9); MONOCYTES % (AUTO) 9.6 % (2-12); NEUTROPHILS # (AUTO) 4.7 X10'3 (1.8-7.7); NEUTROPHILS % (AUTO) 61.8 % (42-75); PLATELET COUNT 251 X10'3 (140-440); RED BLOOD COUNT 3.91 X10'6 (4.70-6.10); RED CELL DISTRIBUTION WIDTH 13.4 % (11.5-14.5); WHITE BLOOD COUNT 7.6 X10'3 (4.5-11.0)
[2024-06-13] MEDS: donepezil 5mg tablet PO SCH (08:40)
[2024-06-13] MEDS: buPROPion SR 150mg tablet PO SCH (08:40)
[2024-06-13] MEDS: atorvastatin 20mg tablet PO SCH (08:41)
[2024-06-13] MEDS: clopidogrel 75mg tablet PO SCH (08:42)
[2024-06-13] MEDS: aspirin 81mg tab.chew PO SCH (08:42)
[2024-06-13] MEDS: folic acid 1mg tablet PO SCH (08:43)
[2024-06-13] MEDS: thiamine 100mg tablet PO SCH (08:50)
[2024-06-13 08:55] LABS: ALANINE AMINOTRANSFERASE 72 U/L (12-78); ALBUMIN 2.9 G/DL (3.4-5.0); ALBUMIN/GLOBULIN RATIO 0.7 (1.1-1.5); ALKALINE PHOSPHATASE 101 IU/L (46-116); ANION GAP 3 (8-16); ASPARTATE AMINO TRANSFERASE 197 U/L (10-37); BILIRUBIN,TOTAL 0.3 MG/DL (0.1-1.0); BLOOD UREA NITROGEN 13 MG/DL (7-18); CALCIUM 8.4 MG/DL (8.5-10.1); CHLORIDE 107 MMOL/L (99-107); CHOL/HDL RATIO 2.3 (0.00-4.99); CHOLESTEROL 138 MG/DL (0-200); CREATININE 0.62 MG/DL (0.60-1.10); GLUCOSE 110 MG/DL (70-104); HDL CHOLESTEROL 61 MG/DL (35-60); LDL CHOLESTEROL 62 MG/DL (50-100); MAGNESIUM 1.8 MG/DL (1.5-2.4); POTASSIUM 3.9 MMOL/L (3.5-5.1); SODIUM 140 MMOL/L (135-145); TOTAL CARBON DIOXIDE 30.4 MMOL/L (24-32); TOTAL PROTEIN 6.9 G/DL (6.4-8.2); TRIGLYCERIDES 65 MG/DL (20-135); eCRCL 108 ML/MIN; eGFR > 90 ML/MIN
[2024-06-13 11:00] VITALS: BP 105/45; PULSE 71; RESP 22; TEMP 96.8; O2SAT 98
[2024-06-13] MEDS ORDERED: METO-395 PO (14:19)
[2024-06-13] MEDS ORDERED: CLOP75TA34 PO (14:19)
[2024-06-13] MEDS ORDERED: ATOR20TA66 PO (14:19)
[2024-06-13] MEDS ORDERED: ASPI81TA53 PO (14:19)
[2024-06-13] MEDS ORDERED: nystatin 15 GM powder TP SCH (20:00)
== END 2024-06-13 16:08 | disposition home or self-care (01) | DRG 174 ==
LOC: ER 09:22 → PCU 3S 11:20
PROVIDERS: ADMIT Internal Medicine Cardiovascular Disease; ATTEND Internal Medicine Cardiovascular Disease
PROC: 027135Z Dilation of Coronary Artery, Two Arteries with Two Drug-eluting Intraluminal Devices, Percutaneous Approach (ICD-10-PCS; principal; 2024-06-12)
PROC: 4A023N7 Measurement of Cardiac Sampling and Pressure, Left Heart, Percutaneous Approach (ICD-10-PCS; 2024-06-12)
PROC: B2111ZZ Fluoroscopy of Multiple Coronary Arteries using Low Osmolar Contrast (ICD-10-PCS; 2024-06-12)
PROC: B2151ZZ Fluoroscopy of Left Heart using Low Osmolar Contrast (ICD-10-PCS; 2024-06-12)
DX: I21.02 ST elevation (STEMI) myocardial infarction involving left anterior descending coronary artery (principal); F11.90 Opioid use, unspecified, uncomplicated; I25.10 Atherosclerotic heart disease of native coronary artery without angina pectoris; F17.290 Nicotine dependence, other tobacco product, uncomplicated; F15.10 Other stimulant abuse, uncomplicated; F17.210 Nicotine dependence, cigarettes, uncomplicated; Z88.0 Allergy status to penicillin; Z79.899 Other long term (current) drug therapy
CPT/HCPCS: 36415; 71045; 80053; 80061; 83735; 83880; 84484; 85025; 87081; 93005; 93306; 93458; 94760; 99152; 99153; 99291; A6258; C1725; C1751; C1769; C1874; C1894; C9601; C9606; G0378; J1644; J2003; J2250; J2270; J2371; J3010; J7030; Q9967

== ENCOUNTER 2025-03-26 17:54 | Emergency (ER) | payer MEDICAID ==
[~2025-03-26] VITALS: Ht 175.3 cm; Wt 63.7 kg
[~2025-03-26 17:54] MED LIST changes: +ASPI81TA53 PO; +CLOP75TA34 PO; +METO-395 PO
--- NOTE | 2025-03-26 18:16 | Physician Documentation ---
History of Present Illness ~ Chief Complaint: Hand pain Stated Complaint: L ARM WOUND Time Seen by MD: 18:10 Primary Medical Doctor: [facility] HPI 59-year-old male presents to the ED after being seen by the sai dave today. The patient states that he injected methamphetamine in his Zoloft upper extremity and has now developed a moderate to severe infection and ulcers. He has not a large open ulcer that is draining the left lateral aspect of his wrist Denies any fevers or nausea or vomiting reports increased pain swelling Day of Onset: Mar 26, 2025 Tetanus within 5 years: No Medication Reconciliation Allergies: Coded Allergies: Penicillins (Verified Allergy, Unknown, 03/26/25) Scheduled Aspirin (Children's Aspirin), 81 MG PO DAILY@0830 Atorvastatin Calcium (Atorvastatin Calcium), 40 MG PO DAILY Bupropion Hcl SR* (Wellbutrin SR*), 1 TAB PO DAILY, (Reported) Cephalexin*Monohydrate* (Keflex*), 1 CAP PO QID Clopidogrel Bisulfate (Clopidogrel), 75 MG PO DAILY Donepezil Hcl (Donepezil Hcl), 1 TAB PO DAILY, (Reported) Folic Acid* (Folic Acid*), 1 MG PO DAILY Metoprolol Succinate (Metoprolol Succinate), 25 MG PO BID Naloxone HCl (Narcan), 1 SPRAYS BOTHNARES ONCE Sulfamethoxazole/Trimethoprim (Septra Ds Tab), 1 TAB PO Q12H Thiamine Mononitrate (Vitamin B-1), 1 TAB PO DAILY Past Medical History Past Medical History: Hepatitis C, *HEMATOLOGY* Past Surgical History: noncontributory, orthopedic surgeries Patient History: FH: glaucoma MOTHER, Not a twin FH: hypertension FATHER Pacemaker FATHER Alcohol Use: Heavy Drug Use: methamphetamine, heroin, other Lives In: Home Review of Systems All Other Systems at this time: Reviewed and Negative ROS As stated above in the HPI, otherwise all systems are reviewed and negative. Physical Exam Vital Signs: Temperature: 98.9, Source: Oral, Heart Rate: 79, Respiratory Rate: 18, BP: 134/84, Pulse Oximetry: 100, Weight: 63.700 Oxygen Flow Rate: 0 Physical Exam General: Alert, no apparent distress. Extremities: The upper extremity there are for open ulcerations with the largest being on the lateral aspect of the left wrist which is approximately 4-5 cm in width and draining. There is surrounding erythema Neurologic: Oriented x4. Psychiatric: Normal mood and affect. Skin: Normal color, warm and dry. No edema, no ecchymosis. Progress Results/Orders Results/Orders Orders - JENNY JONES INDUSTRIAL HYGIENIST Culture Blood (03/26/25 18:13) Monitor (03/26/25 18:13) Saline Lock (03/26/25 18:13) Completed Orders - JENNY JONES INDUSTRIAL HYGIENIST Cbc/Diff (03/26/25 18:13) Procalcitonin (03/26/25 18:13) BMP (03/26/25 18:13) Lacticsepsis (03/26/25 18:13) Sulfamethox/Trimetho. Ds Tab (Septra Ds (03/26/25 19:40) Cephalexin Capsule (Keflex Capsule) (03/26/25 19:40) Medications Received in ER Medications (Trade) Dose Ordered Sig/Juno Route PRN Reason Start Time Stop Time Status Last Admin Dose Admin ( DS tab) 1 tab ONCE ONCE PO 03/26/25 19:40 03/26/25 19:41 DC 03/26/25 19:53 1 TAB (Keflex capsule) 500 mg ONCE ONCE PO 03/26/25 19:40 03/26/25 19:41 DC 03/26/25 19:53 500 MG Vital Signs 03/26/25 03/26/25 18:05 20:41 Temp 98.9 98.1 Pulse 79 84 Resp 18 18 B/P (MAP) 134/84 132/84 Pulse Ox 100 99 O2 Flow Rate 0 Laboratory Tests Test 03/26/25 18:46 03/26/25 18:51 Sodium Level 138 Potassium Level 4.5 Chloride Level 103 Carbon Dioxide Level 23.3 L Anion Gap 12 Blood Urea Nitrogen 29 H Creatinine 0.80 Estimated GFR/1.73 m2 > 90 BUN/Creatinine Ratio 36.3 H Glucose Level 158 H Calcium Level 9.0 Albumin 3.1 L Chemistry Comments White Blood Count 9.0 Red Blood Count 4.05 L Hemoglobin 12.7 L Hematocrit 37.5 L Mean Corpuscular Volume 92.5 Mean Corpuscular Hemoglobin 31.3 H Mean Corpuscular Hemoglobin Concent 33.9 Red Cell Distribution Width 13.6 Platelet Count 369 Mean Platelet Volume 7.6 Neutrophils (%) (Auto) 70.3 Lymphocytes (%) (Auto) 21.8 Monocytes (%) (Auto) 6.2 Eosinophils (%) (Auto) 1.2 Basophils (%) (Auto) 0.5 Neutrophils # (Auto) 6.3 Lymphocytes # (Auto) 2.0 Monocytes # (Auto) 0.6 Eosinophils # (Auto) 0.1 Basophils # (Auto) 0.0 CBC Comment Lactic Acid Level 2.2 H Procalcitonin < 0.05 Microbiology Date/Time Source Procedure Growth Status 03/26/25 18:51 Blood Arm Left Blood Culture - Preliminary NEGATIVE (LESS THAN 24 HOURS) Resulted Medical Decision Making Additional information obtaine: old records, N/A Findings Patient was concerned about the patient potentially being septic based on my physical exam and his presentation. However, he is not tachycardic he is afebrile does not have an elevated white count or and a slightly elevated elevated lactic. Suspect this is related to dehydration in relationship to CO2. He is eating and drinking and does not present acutely ill. He does not have any clinical signs which would indicate flexor tenosynovitis This time I am going to treat him with sulfa and Keflex for broad coverage and outpatient therapy General Diff Dx:Considerations: Unlikely: Abrasion, Contusion, Fracture, Hematoma, Laceration, Malunion, Neurovascular injury, Open fracture, Sprain, Ulcer, Other Shoulder Diff Dx:Consideration: Unlikely: AC separation, Adhesive capsulitis, Arthritis, Bicipital tendonitis, Calcific tendonitis, Cervical disc disease, Contusion, Dislocation, Fracture-humerus, Fracture-scapula, Fracture-clavicle, GB disease, Hematoma, Impingement syndrome, Myocardial infarction, Neurovascular injury, Open fracture-humerus, Open fracture-scapula, Open fracture-clavicle, Rotator cuff injury, SC dislocatoin, Sprain, Subacromial bursitis, Other Elbow Diff Dx:Considerations: Unlikely: Abrasion, Arthritis, Contustion, DJD, Fracture-humerus, Fracture-radial head, Fracture-radius, Fracture-ulna, Gout, Hematoma, Laceration, Neurovascular injury, Olecranon bursitis, Open fracture, Osteomyelitis, Radial head subluxation, Rheumatoid arthritis, Septic, Sprain, Ulcer, Other Wrist Diff Dx:Considerations: Unlikely: Abrasion, Arthritis, DJD, Gout, Rheumatoid, Septic, Carpal tunnel snydrome, Contusion, Dislocation, Fracture- carpal, Fracture-radius, Fracture-ulna, Ganglion, Laceration, Neurovascular injury, Open fracture, Strain, Other Hand Diff Dx:Considerations: Include: Abrasion, Arthritis, Contusion, DJD, Felon, Fracture-carpal, Fracture-metacarpal, Fracture-phalynx, Fracture-radius, Fracture-ulna, Gout, Hematoma, Herpetic sarah, Laceration, Neurovascular injury, Open fracture, Paronychia, Rheumatoid arthritis, Septic, Sprain, Subungual hematoma, Tenosynovitis, Volar plate injury, Cellulitis, Malunion, Other Finger Diff Dx:Considerations: Unlikely: Abrasion, Cellulitis, Contusion, Dislocation, Fracture, Hematoma, Laceration, Neurovascular injury, Open fracture, Subungual hematoma, Other Departure Disposition: 01 HOME / SELF CARE / HOMELESS Impression: Primary Impression: Hand pain Additional Impressions: Methamphetamine abuse Cellulitis Discharge Instructions: Cellulitis, Adult, Satl-in-Nkii Referrals: NO PRIMARY CARE PROVIDER (PCP) Prescriptions Cephalexin*Monohydrate* (Keflex*) 500 Mg Capsule 1 CAP PO QID, #40 CAP Prov: JENNY JONES NP 03/26/25 Sulfamethoxazole/Trimethoprim (Septra Ds Tab) 800 Mg/160 Mg Tablet 1 TAB PO Q12H for 10 Days, #20 TAB Prov: JENNY JONES NP 03/26/25 Education Educated regarding: diagnosis Signature Scribe Signature: corinna Attestation: Scribed for [employer] Order Scheduler by Jenny Bustamante NP . 03/26/25 22:58 JENNY JONES NP Mar 26, 2025 18:16
[2025-03-26 19:06] LABS: MEAN PLATELET VOLUME 7.6 FL (7.4-10.4); RED CELL DISTRIBUTION WIDTH 13.6 % (11.5-14.5)
[2025-03-26 19:11] LABS: CREATININE 0.80 MG/DL (0.60-1.10); TOTAL CARBON DIOXIDE 23.3 MMOL/L (24-32); eCRCL 87 ML/MIN; eGFR > 90 ML/MIN
[2025-03-26] MEDS ORDERED: CEPH-585 PO (19:38)
[2025-03-26] MEDS ORDERED: SULF1TAB45 PO (19:38)
[2025-03-26] MEDS: sulfamethoxazole/trimethoprim DS (800/160mg) tablet PO ONE (19:53)
[2025-03-26] MEDS ORDERED: normal saline 1000ML IV soln IVB ONE (20:05)
[2025-03-26 20:41] VITALS: BP 132/84; PULSE 84; RESP 18; TEMP 98.1; O2SAT 99
== END 2025-03-26 20:43 | disposition home or self-care (01) ==
LOC: ER 17:54
DX: L03.116 Cellulitis of left lower limb (principal); F15.10 Other stimulant abuse, uncomplicated; F11.90 Opioid use, unspecified, uncomplicated; F19.90 Other psychoactive substance use, unspecified, uncomplicated; F10.90 Alcohol use, unspecified, uncomplicated; Z86.19 Personal history of other infectious and parasitic diseases; Z88.0 Allergy status to penicillin; Z79.82 Long term (current) use of aspirin; Z79.899 Other long term (current) drug therapy; Z98.890 Other specified postprocedural states; Y90.9 Presence of alcohol in blood, level not specified
CPT/HCPCS: 36415; 80048; 83605; 84145; 85025; 87040; 99283

== ENCOUNTER 2025-04-11 19:02 | Emergency (ER) | payer MEDICAID ==
[~2025-04-11] VITALS: Ht 180.3 cm; Wt 76.0 kg
[~2025-04-11 19:02] MED LIST changes: +CEPH-585 PO
[2025-04-11 19:28] VITALS: TEMP 97.5
--- NOTE | 2025-04-11 20:04 | Physician Documentation ---
History of Present Illness ~ Chief Complaint: Hypothermia Stated Complaint: HYPOTHERMIA Time Seen by MD: 19:56 [facility] HPI This is a 59-year-old gentleman who was brought in by ambulance. Evidently some good Mormonism and a head cold 911 services because they found the gentleman sleeping on the sidewalk. When EMS picked him up he complains of being called. His temperature was 95.6. At the time of my examination he actually denies any somatic complaints whatsoever. He denies any headache, chest pain, difficulty breathing, nausea, vomiting, diarrhea, abdominal pain, difficulty urinating. He states that he is no longer cold. He would appreciate a turkey sandwich. The gentleman denies any concerns for tobacco, alcohol or illicit substances use. Hx Tetanus, Diphtheria Vaccina: No Medication Reconciliation Allergies: Coded Allergies: Penicillins (Verified Allergy, Unknown, 03/26/25) Scheduled Aspirin (Children's Aspirin), 81 MG PO DAILY@0830 Atorvastatin Calcium (Atorvastatin Calcium), 40 MG PO DAILY Bupropion Hcl SR* (Wellbutrin SR*), 1 TAB PO DAILY, (Reported) Cephalexin*Monohydrate* (Keflex*), 1 CAP PO QID Clopidogrel Bisulfate (Clopidogrel), 75 MG PO DAILY Donepezil Hcl (Donepezil Hcl), 1 TAB PO DAILY, (Reported) Folic Acid* (Folic Acid*), 1 MG PO DAILY Metoprolol Succinate (Metoprolol Succinate), 25 MG PO BID Naloxone HCl (Narcan), 1 SPRAYS BOTHNARES ONCE Thiamine Mononitrate (Vitamin B-1), 1 TAB PO DAILY Discontinued Medications Sulfamethoxazole/Trimethoprim (Septra Ds Tab), 1 TAB PO Q12H Discontinued Reason: Auto Discontinued Past Medical History Past Medical History: Hepatitis C, *HEMATOLOGY* Past Surgical History: noncontributory, orthopedic surgeries Patient History: FH: glaucoma MOTHER, Not a twin FH: hypertension FATHER Pacemaker FATHER Alcohol Use: Heavy Drug Use: methamphetamine, heroin, other Lives In: Home Review of Systems ROS 10 point review of systems was performed and unless noted above in HPI is negative for acute process/complaint. Physical Exam Vital Signs: Temperature: 97.5, Source: Oral, Heart Rate: 56, Respiratory Rate: 16, BP: 122/68, Pulse Oximetry: 99, Weight: 76.000 Oxygen Flow Rate: 0 Physical Exam GENERAL: Awake, alert, oriented, GCS 15, no apparent distress, non-toxic appearing, answers questions, follows commands appropriately. Disheveled gentleman examined in bed 7., obvious stigmata of homelessness. HEENT: Atraumatic, normocephalic, pupils equal, extraocular muscles intact, sclerae anicteric, mucus membranes moist, oropharynx is clear, no stridor. NECK: supple, full active range of motion, trachea midline, no thyromegaly, no lymphadenopathy, no JVD. CARDIOVASCULAR: regular rate/rhythm, no murmurs/gallops/rubs, Pulses are 2+ in all extremities and symmetric. Capillary refill less than 2 seconds. PULMONARY: Nonlabored, good air movement ,no respiratory distress, speaking in full sentences, clear to auscultation bilaterally, no wheezing, no ronchi, no rales, no accessory muscle use. GASTROINTESTINAL: Soft, non-tender, non-distended, normal active bowel sounds, no organomegaly, no pulsatile masses, no CVA tenderness. NEUROLOGIC: Lucid with normal mental status. Normal facial symmetry. Moves all extremities symmetrically and with purpose. No truncal ataxia. Speech is fluid without evidence of dysarthria or aphasia, no focal deficits appreciated. MUSCULOSKELETAL: There is full range of motion of all extremities. There is no joint pain or joint swelling or joint erythema. There is no muscle pain or tenderness or swelling. EXTREMITIES: warm, well-perfused, no cyanosis, no clubbing, no edema, no acute deformities. Skin: warm, dry, no rashes or lesions, no jaundice, no petechiae orpurpura. No ecchymosis. PSYCHIATRIC: Normal affect, normal insight, normal concentration. Focused exam: [] Progress Results/Orders Results/Orders Vital Signs 04/11/25 04/11/25 04/11/25 19:15 19:15 19:28 Temp 95.4 97.5 Pulse 57 56 Resp 22 19 16 B/P (MAP) 137/89 (105) 122/68 (86) Pulse Ox 99 99 O2 Flow Rate 0 Medical Decision Making Additional information obtaine: other (EMS) Findings Facility Status: ED Holds, E process The plan was discussed with the patient, who demonstrates clear understanding of the plan and is in agreement with the plan unless otherwise noted in the chart. All questions have been answered, all concerns were addressed unless otherwise documented. I was available throughout their ED stay for frequent reassessment and questions. Differential Diagnoses (considered and possible or likely): [Cold exposure, less likely hypothermia, less likely hypoglycemia, electrolyte derangement, less likely EKG changes] ??Differential Diagnoses (considered and unlikely, not requiring evaluation currently): [See above] MDM Data Please see [facility] for the following: Independent Historians and external Records Review. Historian: [Patient] Independent Historians: ?[EMS] Medication Management: [Reviewed medication list] Social History and determinants: [Reviewed] Please see the body of the note for the following: Any independent interpretations of ECG, imaging studies. All vitals signs/haemodynamics, ordered tests were independently reviewed and interpreted by myself. Nursing triage complaint and vitals reviewed, additional nursing notes were reviewed as available and I agree unless otherwise noted or documented in contradiction in the chart Vital Signs: Independently reviewed Labs: Independently interpreted Imaging: Independently interpreted Old Medical Records: Independently reviewed, see [facility] for relevant summary and information Pulse Oximetry: [98%] interpreted as [normal on room air] by me [Bead Preparer: [Regular Rate, Regular rhythm, no ectopy, NSR] reviewed and interpreted by me] Additionally notably showing: [Hemodynamically stable] Tests considered but not ordered include: [Hematologic workup and imaging has been considered but does not appear to be necessary given clinical nature of diagnosis] Social Determinants of Health Impact: Patient was evaluated in [facility], [facility] [place] to healthcare due to below par ratio of patient to medical providers. [] Comorbid Conditions Impacting Present Evaluation and Care/Treatment: [Homelessness] Management Discussions with other Healthcare Providers: [None] Treatment and Disposition Medication Management (Given or considered): []. See EMR for details Consideration for Hospitalization/Escalation/Deescalation of Care: Admission for observation has been considered, [however the patient is able to tolerate p.o., their symptoms are controlled, they are able to rely on oral medications, and their chief complaint/diagnosis can be managed on outpatient basis.] ?ED Course:?[Patient has a no somatic complaints whatsoever.] ?Shared decision making:?[Patient is hemodynamically stable for discharge home with follow with their primary care provider. [ ] Specific and cautious return precautions provided and discussed with full understanding. Any incidental findings were also discussed and follow up recommendations given. [] All questions answered. Patient/family were able to verbalize back return precautions. Patient/family agree to plan. Copies of imaging and laboratory studies were provided.] Code status:?FULL Please see the full Electronic Medical Record for full details of nursing documentation, medications list, other records of complete past medical history and conditions, vital signs, laboratory studies, and any radiologic study interpretations by radiologists. Portions of this note were completed using [employer] dictation software and as a result there may exist minor errors in spelling. I have reviewed elements of past family and social history and agree as included in note. Differential Dx:Considerations: Include: Hypothermia; Unlikely: Acidosis, Cardiopulmary arrest, Encephalopathy, Frostbite, Respiratory failure, Sepsis, SIRS Departure Disposition: 01 HOME / SELF CARE / HOMELESS Impression: Primary Impression: Cold exposure Additional Impression: Homelessness Condition: Improved Discharge Instructions: Preventing Hypothermia Referrals: NO PRIMARY CARE PROVIDER (PCP) Education Educated: Patient Educated regarding: diagnosis, treatment, prognosis, need for follow up Signature Scribe Signature: No scribe Attestation: The note accurately reflects work and decisions made by me.Maurizio Villagran DO 04/11/25 20:04 MAURIZIO VILLAGRAN DO Apr 11, 2025 20:04
[2025-04-11 20:29] VITALS: BP 114/68; PULSE 58; RESP 16; O2SAT 99
== END 2025-04-11 20:31 | disposition home or self-care (01) ==
LOC: ER 19:02
DX: T69.9XXA Effect of reduced temperature, unspecified, initial encounter (principal); Z88.0 Allergy status to penicillin; Z88.8 Allergy status to other drugs, medicaments and biological substances; Z59.00 Homelessness unspecified; Z79.82 Long term (current) use of aspirin; X31.XXXA Exposure to excessive natural cold, initial encounter; Y93.89 Activity, other specified; Y92.89 Other specified places as the place of occurrence of the external cause; Y99.8 Other external cause status
CPT/HCPCS: 99283